=== PATIENT | male | born 1990 | race Caucasian/White ===

== ENCOUNTER 2018-01-03 17:24 | Emergency (ER) | payer BC, OTHER ==
[2018-01-03] MEDS ORDERED: TETRACAINE HCL 0.5% OPH SOLN 2 ML OD ONE (17:52)
[2018-01-03] MEDS ORDERED: TETRACAINE HCL 0.5% OPH SOLN 4 ML OD ONE (17:53)
--- NOTE | 2018-01-03 18:14 | ER Document Report ---
ED Eye Complaint - General Chief Complaint: Eye Problem Stated Complaint: RT EYE PAIN Time Seen by Provider: 01/03/18 17:52 Notes: Patient presents for concern of right eye pain and redness. Patient is a contact wearer. 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 After working on the car he was walking around the mechanical test technician shop when he began to feel itchiness in his eye. He woke this morning to a red eye that is painful with movement and has a throbbing sensation. He denies any recent fevers or chills. He denies any mental grinding or any events that could have led to projectiles entering his eye. He states that he feels that he has blurriness in his right eye as well. TRAVEL OUTSIDE OF THE [place] IN LAST 30 DAYS: No - Related Data Allergies/Adverse Reactions: Penicillins Allergy (Verified 01/03/18 17:25) Past Medical History - Social History Smoking Status: Never Smoker Chew tobacco use (# tins/day): No Frequency of alcohol use: None Drug Abuse: None Family History: Reviewed & Not Pertinent Patient has suicidal ideation: No Patient has homicidal ideation: No Renal/ Medical History: Denies: Hx Peritoneal Dialysis Review of Systems - Review of Systems Constitutional: No symptoms reported EENT: No symptoms reported, See HPI, Eye pain, Blurred vision, Tearing Cardiovascular: No symptoms reported Respiratory: No symptoms reported Gastrointestinal: No symptoms reported Genitourinary: No symptoms reported Male Genitourinary: No symptoms reported Musculoskeletal: No symptoms reported Skin: No symptoms reported Hematologic/Lymphatic: No symptoms reported Neurological/Psychological: No symptoms reported Physical Exam - Vital signs Vitals: Temp Pulse Resp BP Pulse Ox 97.9 F 84 18 112/61 98 01/03/18 17:41 01/03/18 17:41 01/03/18 17:41 01/03/18 17:41 01/03/18 17:41 - General General appearance: Appears well, Alert - HEENT Head: Normocephalic - Slit lamp exam concern for corneal ulceration versus abrasion., Atraumatic - Flurisean uptake lateral aspect of cornea consistent with corneal abrasion Conjunctiva: Injected Cornea: Corneal abrasion, Corneal ulcer - No FB visualized, Flourescein stain uptake Extraocular movements intact: Yes Eyelashes: Normal Pupils: PERRL Visual acuity- Right eye: 20/40 Visual acuity- Left eye: 20/25 Visual acuity- Both eyes: 20/20 Corrective lenses worn: Yes - Respiratory Respiratory status: No respiratory distress - Cardiovascular Rhythm: Regular Course - Re-evaluation Re-evalutation: 01/03/18 18:37 Concern for ulceration after slit lamp exam will provide antibiotic drops and patient is to follow-up with Dr. Scott tomorrow first thing in the morning for evaluation. Discussed importance of following up with ophthalmology within the next 12-24 hours. - Vital Signs Vital signs: Temp Pulse Resp BP Pulse Ox 97.9 F 78 16 122/68 99 01/03/18 19:05 01/03/18 19:05 01/03/18 19:05 01/03/18 19:05 01/03/18 19:05 Discharge - Discharge Clinical Impression: Corneal ulcer Qualifiers: Laterality: right Qualified Code(s): H16.001 - Unspecified corneal ulcer, right eye Condition: Good Disposition: HOME, SELF-CARE Instructions: Corneal Ulceration ([facility]) Additional Instructions: Please use drops provided 1 drop every hour to affected eye until seen by ophthalmology It is important that you follow-up with ophthalmology tomorrow. If you are unable to see telephoto engineer referral then please go to a walk-in bench scientist for evaluation in the AM. Forms: Return to Work Referrals: GEOVANNY SCOTT MD [ACTIVE STAFF] - 01/04/18 Scribe Attestation: 01/11/18 07:39 I personally performed the services described in the documentation, reviewed and edited the documentation which was dictated to the scribe in my presence, and it accurately records my words and actions.
[2018-01-03] MEDS ORDERED: CIPROFLOXACIN HCL 0.3% OPH SOLN 2.5 ML OD ONE (18:41)
[2018-01-03] MEDS ORDERED: HYDROCODONE/ACETAMINOPHEN 5-325 MG (6 TAB/ER DISP) PO PRN (18:42)
[2018-01-03 19:15] VITALS: BP 122/68
== END 2018-01-03 19:00 | disposition home or self-care (01) ==
LOC: ER 17:24
DX: H16.001 Unspecified corneal ulcer, right eye (principal); Z88.0 Allergy status to penicillin
CPT/HCPCS: 99283; J3490